=== PATIENT | female | born 1995 | race African-American/Black ===

== ENCOUNTER 2018-07-12 16:01 | Emergency (ER) | payer SELFPAY ==
[~2018-07-12] VITALS: Ht 157.5 cm; Wt 57.2 kg
[2018-07-12 16:10] VITALS: BP 120/68
--- NOTE | 2018-07-12 16:10 | NUR ---
ED Nurse Note: pt walked in c/o increase in vaginal bleeding, pt states she had about three wks ago and had bleeding ever since but noted increase this past week with blood clots. PT AA&ox4, gcs=15, skin warm and dry, resp even and unlabored, normal skin sign, cap refill 3sec, -n/v/d, ambulates w/ steady gait, will cont monitor.
[2018-07-12 17:04] LABS: EOSINOPHILS % (AUTO) 1.4 % (0.0-3.0); HEMATOCRIT 28.3 % (37.0-47.0); HEMOGLOBIN 8.4 G/DL (12.0-16.0); LYMPHOCYTES % (AUTO) 29.3 % (20.0-45.0); MEAN CORPUSCULAR VOLUME 72 FL (80-99); MONOCYTES % (AUTO) 7.2 % (1.0-10.0); PLATELET COUNT 259 K/UL (150-450); RED BLOOD COUNT 3.91 M/UL (4.20-5.40); RED CELL DISTRIBUTION WIDTH 19.6 % (11.6-14.8); WHITE BLOOD COUNT 4.7 K/UL (4.8-10.8)
[2018-07-12 17:09] LABS: APPEARANCE,URINE CLEAR; BILIRUBIN, URINE NEGATIVE (NEGATIVE); COLOR,URINE PALE YELLOW; GLUCOSE, URINE (UA) NEGATIVE (NEGATIVE); KETONES,URINE NEGATIVE (NEGATIVE); LEUKOCYTE ESTERASE ,URINE NEGATIVE (NEGATIVE); NITRITE,URINE NEGATIVE (NEGATIVE); PH,URINE 6 (4.5-8.0); PROTEIN,URINE NEGATIVE (NEGATIVE); UROBILINOGEN,URINE NORMAL MG/DL (0.0-1.0)
[2018-07-12 17:10] VITALS: BP 118/68
[2018-07-12 17:19] LABS: ANION GAP 11 mmol/L (5-15); BLOOD UREA NITROGEN 6 mg/dL (7-18); CALCIUM 9.2 MG/DL (8.5-10.1); CARBON DIOXIDE 25 MMOL/L (21-32); CHLORIDE 100 MMOL/L (98-107); CREATININE 0.7 MG/DL (0.55-1.30); INR 1.1 (0.9-1.1); POTASSIUM 4.3 MMOL/L (3.5-5.1); SODIUM 136 MMOL/L (136-145)
[2018-07-12 17:24] LABS: ALANINE AMINOTRANSFERASE 22 U/L (12-78); ALBUMIN 4.7 G/DL (3.4-5.0); ALBUMIN/GLOBULIN RATIO 1.2 (1.0-2.7); ALKALINE PHOSPHATASE 65 U/L (46-116); ASPARTATE AMINO TRANSFERASE 56 U/L (15-37); BILIRUBIN,TOTAL 0.7 MG/DL (0.2-1.0)
--- NOTE | 2018-07-12 17:30 | NUR ---
ED Nurse Note: pt off to ultrasound
[2018-07-12 19:10] VITALS: BP 116/78
--- NOTE | 2018-07-12 19:39 | Emergency Room Report ---
History of Present Illness General Chief Complaint: Abnormal Labs Source: Patient Present Illness HPI Patient had an induced 3 weeks ago. She is continued to have some mild bleeding using 3 pads a day. She feels weak and somewhat dizzy when she stands. She was told she is anemic to come to get blood transfusions. She denies any fevers or chills. There is no nausea, vomiting, diarrhea, dysuria or change in bowels. She denies any abdominal pain at this time. She has been taking vitamins. Patient denies major medical problems. Allergies: Coded Allergies: No Known Allergies (Unverified , 07/12/18) Patient History Past Medical History: see triage record Social History: Denies: smoking, alcohol use, drug use Social History Narrative Last Menstrual Period: recent Now: No Reviewed Nursing Documentation: PMH: Agreed; PSxH: Agreed Nursing Documentation-PMH Past Medical History: No History, Except For Physical Exam Vital Signs Date Time Temp Pulse Resp B/P (MAP) Pulse Ox O2 Delivery O2 Flow Rate FiO2 07/12/18 16:08 98.2 96 18 111/67 98 Room Air Sp02 EP Interpretation: reviewed, normal General Appearance: well appearing, no apparent distress, GCS 15 Head: normocephalic, atraumatic Eyes: bilateral eye conjunctivae pale ENT: moist mucus membranes Neck: supple Respiratory: lungs clear, normal breath sounds Cardiovascular #1: regular rate, rhythm Cardiovascular #2: 2+ radial (R) Gastrointestinal: normal inspection, normal bowel sounds, non tender, no mass, non-distended Genitourinary: no CVA tenderness, deferred - For ultrasound Musculoskeletal: back normal, gait/station normal, normal range of motion Neurologic: alert, oriented x3, grossly normal Psychiatric: mood/affect normal Skin: normal inspection, warm/dry Medical Decision Making Diagnostic Impression: Primary Impression: Retained products of conception Additional Impression: Anemia Qualified Codes: D50.0 - Iron deficiency anemia secondary to blood loss ( chronic) ER Course Patient presents 3 weeks post with a history of anemia. Differential includes retained products, significant anemia, ineffective procedure amongst others. Patient will be evaluated with labs and ultrasound. It is significant that she has no pain at this time. Orthostatics will be performed. Blood will be obtained for possible transfusion. Patient is not orthostatic. CBC with low H&H (8.4 hemoglobin). White count normal. CMP normal. Quantitative hCG 27. Urinalysis with microscopic hematuria. Ultrasound suggests there might be retained products. I discussed the risk of transfusion and the fact that by her vital signs the anemia seems to be fairly stable at this time. I recommended that the patient continue with vitamins and follow-up with the clinic where the procedure was performed in order to undergo D&C. There is no evidence of life- threatening hemorrhage at this time. She still is requesting transfusion. I told her that it was not advised due to the risk of infectious disease and transfusion reaction. She seemed to be getting pressure from her to get transfusions (over the phone). Patient stable for outpatient observation and treatment. Laboratory Tests Test 07/12/18 16:45 White Blood Count 4.7 K/UL (4.8-10.8) L Red Blood Count 3.91 M/UL (4.20-5.40) L Hemoglobin 8.4 G/DL (12.0-16.0) L Hematocrit 28.3 % (37.0-47.0) L Mean Corpuscular Volume 72 FL (80-99) L Mean Corpuscular Hemoglobin 21.5 PG (27.0-31.0) L Mean Corpuscular Hemoglobin Concent 29.6 G/DL (32.0-36.0) L Red Cell Distribution Width 19.6 % (11.6-14.8) H Platelet Count 259 K/UL (150-450) Mean Platelet Volume 5.3 FL (6.5-10.1) L Neutrophils (%) (Auto) 60.0 % (45.0-75.0) Lymphocytes (%) (Auto) 29.3 % (20.0-45.0) Monocytes (%) (Auto) 7.2 % (1.0-10.0) Eosinophils (%) (Auto) 1.4 % (0.0-3.0) Basophils (%) (Auto) 2.0 % (0.0-2.0) Prothrombin Time 11.4 SEC (9.30-11.50) Prothrombin Time INR 1.1 (0.9-1.1) PTT 25 SEC (23-33) Urine Color Pale yellow Urine Appearance Clear Urine pH 6 (4.5-8.0) Urine Specific [place] 1.005 (1.005-1.035) Urine Protein Negative (NEGATIVE) Urine Glucose (UA) Negative (NEGATIVE) Urine Ketones Negative (NEGATIVE) Urine Blood 5+ (NEGATIVE) H Urine Nitrite Negative (NEGATIVE) Urine Bilirubin Negative (NEGATIVE) Urine Urobilinogen Normal MG/DL (0.0-1.0) Urine Leukocyte Esterase Negative (NEGATIVE) Urine RBC 5-10 /HPF (0 - 2) H Urine WBC 0 /HPF (0 - 2) Urine Squamous Epithelial Cells Occasional /LPF Urine Bacteria Occasional /HPF (NONE) Sodium Level 136 MMOL/L (136-145) Potassium Level 4.3 MMOL/L (3.5-5.1) Chloride Level 100 MMOL/L (98-107) Carbon Dioxide Level 25 MMOL/L (21-32) Anion Gap 11 mmol/L (5-15) Blood Urea Nitrogen 6 mg/dL (7-18) L Creatinine 0.7 MG/DL (0.55-1.30) Estimate Glomerular Filtration Rate > 60 mL/min (>60) Glucose Level 84 MG/DL (74-106) Calcium Level 9.2 MG/DL (8.5-10.1) Total Bilirubin 0.7 MG/DL (0.2-1.0) Aspartate Amino Transferase (AST) 56 U/L (15-37) H Alanine Aminotransferase (ALT) 22 U/L (12-78) Alkaline Phosphatase 65 U/L (46-116) Total Protein 8.6 G/DL (6.4-8.2) H Albumin 4.7 G/DL (3.4-5.0) Globulin 3.9 g/dL Albumin/Globulin Ratio 1.2 (1.0-2.7) Lipase 174 U/L (73-393) Human Chorionic Gonadotropin, Quant 27 mIU/mL (1-6) H CT/MRI/US Diagnostic Results CT/MRI/US Diagnostic Results : Imaging Test Ordered: u/s Impression retained products Last Vital Signs Date Time Temp Pulse Resp B/P (MAP) Pulse Ox O2 Delivery O2 Flow Rate FiO2 07/12/18 20:43 97.2 80 16 118/79 100 Room Air Status: improved Disposition: HOME, SELF-CARE Condition: Stable Referrals: NOT CHOSEN IPA/,REFERRING (PCP) Giovani Painter MD Jul 12, 2018 19:39
[2018-07-12 20:10] VITALS: BP 114/80
[2018-07-12 20:24] VITALS: BP_SYST 114; BP_SYST 116; BP_SYST 119; BP_DIAS 79; BP_DIAS 80
[2018-07-12 20:43] VITALS: BP 118/79
--- NOTE | 2018-07-12 20:44 | NUR ---
Cole gage in EDM - 07/12/18 at 2046 by [email or web address] ED Nurse Note: Pt discharge instruction provided, pt advised to continue to take vitamin and follow up with clinic and pcp regarding discarge instruction, pt education done via handout and discussion, pt iv removed, dressing applied and intact, pt tolerated well, wrist band removed, pt verbalized understanding and agrees with plan, pt vss, NSR, pain=10
--- NOTE | 2018-07-12 20:46 | NUR ---
ED Nurse Note: Pt discharge instruction provided, pt advised to continue to take vitamin and follow up with clinic and pcp regarding discarge instruction, pt education done via handout and discussion, pt iv removed, dressing applied and intact, pt tolerated well, wrist band removed, pt verbalized understanding and agrees with plan, pt vss, NSR, no pain at this time, ambulatory w/ steady gait.
--- NOTE | 2018-07-13 10:42 | Diagnostic Imaging Report ---
Indication:Lower abdominal and pelvic pain Technique: Grayscale and duplex Doppler imaging of the pelvis performed utilizing a transabdominal and endovaginal scan. Comparison: None Findings: The size, contour, and configuration of the uterus is within normal limits. The endometrium is uniformly echogenic and normal in thickness measuring between 7 and 8 mm. There are no obvious retained products identified on the images. The uterus measures approximately 10 x 8 x 5 cm. The ovaries appear normal bilaterally with good dopplerable blood flow. There is no significant free fluid identified. Right ovary measures approximately 5 x 4.4 x 1.5 cm. Left ovary measures 3.6 x 4 x 2.6 cm. IMPRESSION: Negative pelvic ultrasound. No acute findings.
== END 2018-07-12 20:45 | disposition home or self-care (01) ==
LOC: EMR 17:50
DX: O03.4 Incomplete spontaneous abortion without complication (principal); D50.0 Iron deficiency anemia secondary to blood loss (chronic)
CPT/HCPCS: 36415; 76830; 76856; 80053; 81003; 83690; 84702; 85025; 85610; 85730; 86850; 86900; 86901; 96360; 99284